=== PATIENT | male | born 1980 | race Caucasian/White ===

== ENCOUNTER 2017-10-10 12:39 | Emergency (ER) | payer BC ==
[~2017-10-10] VITALS: Ht 165.1 cm; Wt 77.1 kg
--- OUTSIDE RECORDS SUMMARY | 2017-10-10 12:40 | XMS REPORT | Clinical Summary ---
Author Author [facility] Organization [facility] Address Unknown Phone Unavailable Care Team Providers Care Web Applications Programmer Name Role Phone Rakesh Garcia MD PCP Allergies Active Allergy Reactions Severity Noted Date Comments Penicillin G Rash Low 10/04/2017 Current Medications Not on file Active Problems Not on file Encounters Date Type Specialty Care Team Description 10/04/2017 Emergency Emergency Medicine Rajesh Danielson MD Atypical chest pain (Primary Dx); Essential hypertension after 10/09/2016 Social History Tobacco Use Types Packs/Day Years Used Date Never Smoker Smokeless Tobacco: Never Used Alcohol Use Drinks/Week oz/Week Comments No Sex Assigned at Date Recorded Not on file Last Filed Vital Signs Vital Sign Reading Time Taken Blood Pressure 137/95 10/04/2017 5:00 PM CDT Pulse 68 10/04/2017 5:00 PM CDT Temperature 36.6 C (97.8 F) 10/04/2017 5:00 PM CDT Respiratory Rate 26 10/04/2017 5:00 PM CDT Oxygen Saturation 97% 10/04/2017 5:00 PM CDT Inhaled Oxygen - - Concentration Weight - - Height 165.1 cm (5' 5") 10/04/2017 3:06 PM CDT Body Mass Index - - Plan of Treatment Health Maintenance Due Date Last Done Comments INFLUENZA VACCINE 12/24/2017 Results * XR Chest 1 Vw Portable (10/04/2017 4:49 PM) Specimen Performing Laboratory [facility] [address] [place] [address] Narrative EXAMINATION:XR CHEST 1 VW PORTABLE CLINICAL HISTORY:Chest Pain COMPARISON:None IMPRESSION: An AP radiograph of the chest was submitted for interpretation. The lungs are clear. The mediastinal contours and cardiac silhouette are unremarkable. The bones are unremarkable. [facility]-[id number] Procedure Note Interface, Radiology Results Incoming - 10/04/2017 4:54 PM CDT EXAMINATION: XR CHEST 1 VW PORTABLE CLINICAL HISTORY: Chest Pain COMPARISON: None IMPRESSION: An AP radiograph of the chest was submitted for interpretation. The lungs are clear. The mediastinal contours and cardiac silhouette are unremarkable. The bones are unremarkable. [facility]-[id number] * ECG ED Preliminary Interpretation - NOT AN ORDER (10/04/2017 4:29 PM) Camron Danielson MD 10/04/2017 10:17 PM ECG ED Preliminary Interpretation - Not an Order Performed by: ANITA THORNTON Authorized by: ANITA THORNTON ECG reviewed by ED Physician in the absence of a drawer in plain loom: yes Previous ECG: Previous ECG:Unavailable Interpretation: Interpretation: normal Rate: ECG rate:65 ECG rate assessment: normal Rhythm: Rhythm: sinus rhythm Ectopy: Ectopy: none QRS: QRS axis:Normal QRS intervals:Normal Conduction: Conduction: normal ST segments: ST segments:Normal T waves: T waves: normal * Estimated GFR (10/04/2017 3:15 PM) Component Value Ref Range GFR Non Af Amer 83 mL/min/1.73 m2 GFR Af Amer >90 mL/min/1.73 m2 Comment: Chronic kidney disease: <60 mL/min/1.73m2 Kidney failure: <15 mL/min/1.73m2 The estimated GFR is calculated from the IDMS-traceable Modification of Diet in Renal Disease Equation. The accuracy of the calculation is poor when the creatinine is normal. Calculated values >90 mL/min/1.73m2 are not reported. This equation has not been validated in children (<18 years), women, the elderly (>70 years), or ethnic groups other than Caucasians and Americans. Specimen Performing Laboratory Plasma specimen [facility] DEPARTMENT OF PATHOLOGY AND GENOMIC MEDICINE [address] [place] [id number] * Troponin (10/04/2017 3:15 PM) Component Value Ref Range Troponin <0.30 0.00 - 0.30 ng/mL Comment: 0.30 - 1.49 ng/ml May indicate increased risk of acute coronary syndrome. >=1.5 ng/ml Consistent with acute myocardial infarction. The diagnostic value of a single normal or non-diagnostic result is questionable. Serial samples at 2-6 hour intervals are required to rule out acute myocardial injury. Specimen Performing Laboratory Plasma specimen [facility] DEPARTMENT OF PATHOLOGY AND GENOMIC MEDICINE [address] [place] [id number] * CBC with platelet and differential (10/04/2017 3:15 PM) Component Value Ref Range WBC 9.55 4.50 - 11.00 k/uL RBC 5.22 4.40 - 6.00 m/uL HGB 14.5 14.0 - 18.0 g/dL HCT 42.7 41.0 - 51.0 % MCV 81.8 (L) 82.0 - 100.0 fL MCH 27.8 27.0 - 34.0 pg MCHC 34.0 31.0 - 37.0 g/dL RDW - SD 36.1 (L) 37.0 - 55.0 fL MPV 10.0 8.8 - 13.2 fL Platelet count 234 150 - 400 k/uL Nucleated RBC 0.00 /100 WBC Neutrophils 62.8 39.0 - 69.0 % Lymphocytes 28.6 25.0 - 45.0 % Monocytes 6.2 0.0 - 10.0 % Eosinophils 1.7 0.0 - 5.0 % Basophils 0.3 0.0 - 1.0 % Immature granulocytes 0.4Comment: "Immature granulocytes" 0.0 - 1.0 % (promyelocytes, myelocytes, metamyelocytes) Specimen Performing Laboratory Blood [facility] DEPARTMENT OF PATHOLOGY AND GENOMIC MEDICINE [address] [place] [id number] * B natriuretic peptide (10/04/2017 3:15 PM) Component Value Ref Range BNP 5 0 - 100 pg/mL Specimen Performing Laboratory Blood [facility] DEPARTMENT OF PATHOLOGY AND GENOMIC MEDICINE [address] [place] [id number] * Comprehensive metabolic panel (10/04/2017 3:15 PM) Component Value Ref Range Sodium 139 135 - 148 mEq/L Potassium 4.3 3.5 - 5.0 mEq/L Chloride 99 98 - 112 mEq/L CO2 25 24 - 31 mEq/L Anion gap 15 7 - 15 mEq/L Comment: Starting from August , anion gap calculation no longer incorporates potassium. Please note the change. BUN 16 6 - 20 mg/dL Creatinine 1.0 0.7 - 1.2 mg/dL Glucose 96 65 - 99 mg/dL Calcium 9.7 8.3 - 10.2 mg/dL Protein 8.0 6.3 - 8.3 g/dL Comment: 4.6-7.0 g/dL 1 week 4.4-7.6 g/dL 7 months-1year 5.1-7.3 g/dL 1-2 years 5.6-7.5 g/dL >3 years 6.0-8.0 g/dL 18-150 6.3-8.3 g/dL Albumin 4.5 3.5 - 5.0 g/dL A/G ratio 1.3 0.7 - 3.8 Alkaline phosphatase 60 40 - 129 U/L AST 17 10 - 50 U/L ALT 35 5 - 50 U/L Total bilirubin 0.6 0.0 - 1.2 mg/dL Specimen Performing Laboratory Plasma specimen [facility] DEPARTMENT OF PATHOLOGY AND GENOMIC MEDICINE [address] [place] [phone] * ECG 12 lead (10/04/2017 3:09 PM) Component Value Ref Range Ventricular rate 70 Atrial rate 70 DE interval 140 QRSD interval 74 QT interval 370 QTC interval 399 P axis 1 24 QRS axis 1 25 T wave axis 41 EKG impression Normal sinus rhythm-Normal ECG-No previous ECGs available- Specimen Performing Laboratory [facility]USE [address] [place] [phone] after 10/09/2016 Insurance Payer Benefit Subscriber ID Type Phone Address Plan / Group BCBS BCBS xxxxxxxxxxxx PPO CHOICE PPO/[place] [address]
--- NOTE | 2017-10-10 12:56 | Diagnostic Imaging Report ---
PROCEDURE: A single AP view of the chest. COMPARISON: None. INDICATIONS: RIGHT SIDED WEAKNESS FINDINGS: Lines/tubes: None. Lungs: The lungs are well inflated and clear. There is no evidence of pneumonia or pulmonary edema. Pleura: There is no pleural effusion or pneumothorax. Heart and mediastinum: The heart and the mediastinum are unremarkable. Bones: No acute bony abnormality. IMPRESSION: 1. No acute cardiopulmonary abnormalities. Placido Campos M.D. Dictated by: Placido Campos M.D. on 10/10/2017 at 12:58 Electronically approved by: Placido Campos M.D. on 10/10/2017 at 12:58
--- NOTE | 2017-10-10 13:12 | Diagnostic Imaging Report ---
Exam: Head CT without contrast History: Right-sided weakness Comparison studies: None Technique: Axial images were obtained from the skull base to the vertex. Coronal and sagittal images reconstructed from the axial data. Intravenous contrast: None Findings: Scalp: No abnormalities. Bones: No fractures, blastic or lytic lesions. Brain sulci: Appropriate for age. Ventricles: Normal in size and configuration. No hydrocephalus. Extra-axial spaces: No masses, no fluid collection. Parenchyma: No abnormal densities. No masses, hemorrhage, acute or chronic vascular insults. Sellar/suprasellar region: No abnormalities. Craniocervical junction: Patent foramen magnum. No Chiari one malformation. Incidental findings: Moderate calcified atherosclerosis in the intradural V4 segments of the vertebral arteries. IMPRESSION: 1. No acute intracranial abnormalities. 2. Calcified atherosclerosis in the intradural segments of the vertebral arteries. Signed by: Dr. Lewis Johnson M.D. on 10/10/2017 1:08 PM
[2017-10-10 13:16] LABS: BASOPHILS % 0.4 % (0.0-1.0); EOSINOPHILS # (AUTO) 0.1 (0.0-0.4); EOSINOPHILS % 1.3 % (0.0-6.0); HEMATOCRIT 43.7 % (38.2-49.6); HEMOGLOBIN 15.3 g/dL (14.0-18.0); LYMPHOCYTES # (AUTO) 2.5 (1.0-3.2); LYMPHOCYTES % 31.1 % (18.0-39.1); MEAN CORPUSCULAR HEMOGLOBIN 28.1 pg (28-32); MEAN CORPUSCULAR VOLUME 80.2 fL (81-99); MONOCYTES # (AUTO) 0.5 (0.2-0.8); MONOCYTES % 6.4 % (4.4-11.3); NEUTROPHILS # (AUTO) 4.9 (2.1-6.9); NEUTROPHILS % 60.4 % (38.7-80.0); PLATELET COUNT 252 x10e3/uL (140-360); RED BLOOD COUNT 5.45 x10e6/uL (4.3-5.7); RED CELL DISTRIBUTION WIDTH 12.2 % (11.7-14.4)
[2017-10-10 13:34] LABS: INR 1.04; PARTIAL THROMBOPLASTIN TIME 28.6 seconds (23.8-35.5); PROTHROMBIN TIME 12.8 seconds (11.9-14.5)
[2017-10-10 13:47] LABS: ALANINE AMINOTRANSFERASE 41 IU/L (0-55); ALBUMIN 4.8 g/dL (3.5-5.0); ALBUMIN/GLOBULIN RATIO 1.5 (0.8-2.0); ALKALINE PHOSPHATASE 60 IU/L (40-150); ANION GAP 14.8 mmol/L (8-16); BLOOD UREA NITROGEN 19 mg/dL (7-26); BUN/CREATININE RATIO 16 (6-25); CARBON DIOXIDE 23 mmol/L (22-29); CHLORIDE 105 mmol/L (98-107); CREATINE KINASE 52 IU/L (30-200); CREATININE, SERUM 1.22 mg/dL (0.72-1.25); EST GLOMERULAR FILTRATION RATE > 60 ML/MIN (60-); GLUCOSE 100 mg/dL (74-118); POTASSIUM 3.8 mmol/L (3.5-5.1); SODIUM 139 mmol/L (136-145)
[2017-10-10 14:27] VITALS: BP 129/88
== END 2017-10-10 14:30 | disposition home or self-care (01) ==
LOC: ER 12:39
DX: R53.1 Weakness (principal); M54.12 Radiculopathy, cervical region; M54.16 Radiculopathy, lumbar region
CPT/HCPCS: 36415; 70450; 71045; 80053; 82550; 82553; 84484; 85025; 85610; 85730; 93005; 99284